=== PATIENT | female | born 1945 | race Hispanic/Latino ===

== ENCOUNTER 2016-12-24 11:59 | Emergency (ER) | payer MEDICARE ==
[2016-12-24] MEDS ORDERED: REGLAN IM ONE (14:23)
[2016-12-24] MEDS ORDERED: MORPHINE IM ONE (14:23)
--- NOTE | 2016-12-24 14:28 | Emergency Department Report ---
ED Headache HPI - General Chief Complaint: Headache Stated Complaint: SINUS INFECTION/HEADACHE Time Seen by Provider: 12/24/16 14:10 Source: patient - History of Present Illness Initial Comments: Patient comes into the ER today with complaints of right-sided headache for the past 2 days. Patient denies any recent injury to her head. Patient describes the pain as a sharp throbbing pain. Patient denies any visual changes. Patient does state that she has been nauseated without any vomiting. Patient thinks that it may be a sinus infection that has started her headache because she says that she feels very congested and swollen in the right side of her face. Patient does have a history of migraines and also states that this feels similar to such as well. Patient does note that the light does bother her headache some as well. Patient further notes that he has been on constant since she's had a bad migraine but in the past she has received a morphine shot that really has helped with her headache. Timing/Duration: other (2 days) Quality: severe, constant, pressure, throbbing Head Injury Location: frontal, temporal, parietal Modifying Factors: improves with: exposure to light Associated Symptoms: facial pain, nasal congestion. denies: confusion, loss of consciousness, numbness in legs/feet, seizures, stiff neck, vision changes, weakness Allergies/Adverse Reactions: Allergies nitroglycerin [From Nitro-Bid] Adverse Reaction (Verified 05/12/16 17:13) DECREASED HR Home Medications: Ambulatory Orders Amoxicillin 500 mg PO TID #30 capsule 12/24/16 Butalb/Acetamin/Caff 50-325-40 [Fioricet] 1 tab PO Q8HR PRN #15 tablet 12/24/16 DULoxetine [Cymbalta] 30 mg PO DAILY #30 capsule 12/24/16 Diazepam Tab [Valium] 5 mg PO BID PRN #10 tablet 12/24/16 ED Review of Systems ROS: Stated complaint: SINUS INFECTION/HEADACHE Other details as noted in HPI Constitutional: denies: chills, fever Eyes: denies: eye pain, eye discharge, vision change ENT: ear pain (right ear), congestion. denies: throat pain, dental pain Respiratory: denies: cough, shortness of breath, SOB with exertion, wheezing Cardiovascular: denies: chest pain, palpitations, dyspnea on exertion, edema, syncope Endocrine: no symptoms reported Gastrointestinal: nausea. denies: abdominal pain, vomiting, diarrhea Genitourinary: denies: urgency, dysuria, discharge Musculoskeletal: denies: back pain, joint swelling, arthralgia Skin: denies: rash, lesions Neurological: headache. denies: weakness, numbness, paresthesias, confusion, abnormal gait, vertigo Psychiatric: denies: anxiety, depression Hematological/Lymphatic: denies: easy bleeding, easy bruising ED Past Medical Hx - Past Medical History Hx Hypertension: Yes (x 40 years not on medications) Hx CVA: Yes Hx Heart Attack/AMI: No Hx Liver Disease: No Hx Renal Disease: No Hx Sickle Cell Disease: No Hx Headaches / Migraines: Yes (migraines) Hx Seizures: No Hx Psychiatric Treatment: Yes (ANXIETY) Hx COPD: Yes (not on medications) Hx HIV: No - Surgical History Hx Pacemaker: No Hx Internal Defibrillator: No Hx Appendectomy: Yes Additional Surgical History: HYSTERECTOMY. LEFT LUNG SURGERY (CANCER) - Social History Smoking Status: Current Every Day Smoker Substance Use Type: None - Medications Home Medications: Home Medications Medication Instructions Recorded Confirmed Last Taken Type Amoxicillin 500 mg PO TID #30 capsule 12/24/16 Unknown Rx Butalb/Acetamin/Caff 50-325-40 1 tab PO Q8HR PRN #15 tablet 12/24/16 Unknown Rx [Fioricet] DULoxetine [Cymbalta] 30 mg PO DAILY #30 capsule 12/24/16 Unknown Rx Diazepam Tab [Valium] 5 mg PO BID PRN #10 tablet 12/24/16 Unknown Rx ED Physical Exam - General Limitations: No Limitations General appearance: alert, in no apparent distress - Head Head exam: Present: atraumatic, normocephalic, normal inspection, other (right parietal, right frontal, right maxillary tenderness) - Eye Eye exam: Present: normal appearance, PERRL, EOMI. Absent: conjunctival injection, periorbital swelling, periorbital tenderness Pupils: Present: normal accommodation - ENT ENT exam: Present: mucous membranes moist, TM's normal bilaterally, normal external ear exam, other (right nasal mucosa redness and swelling) - Neck Neck exam: Present: normal inspection, full ROM. Absent: tenderness, meningismus, lymphadenopathy, thyromegaly - Respiratory Respiratory exam: Present: normal lung sounds bilaterally. Absent: respiratory distress, chest wall tenderness, decreased breath sounds - Cardiovascular Cardiovascular Exam: Present: regular rate, normal rhythm, normal heart sounds. Absent: systolic murmur, diastolic murmur, rubs, gallop - GI/Abdominal GI/Abdominal exam: Present: soft, normal bowel sounds. Absent: distended, tenderness - Extremities Exam Extremities exam: Present: normal inspection - Back Exam Back exam: Present: normal inspection - Neurological Exam Neurological exam: Present: alert, oriented X3, normal gait, reflexes normal. Absent: motor sensory deficit - Psychiatric Psychiatric exam: Present: normal affect, normal mood - Skin Skin exam: Present: warm, dry, intact, normal color. Absent: rash ED Course Vital Signs 12/24/16 12/24/16 13:09 15:45 Temperature 98 F Pulse Rate 64 Respiratory 16 20 Rate Blood Pressure 160/105 Blood Pressure 158/84 [Right] O2 Sat by Pulse 100 99 Oximetry ED Medical Decision Making - Radiology Data Radiology results: report reviewed CT of head without contrast reveals no evidence of acute hemorrhage or infarct. No masses or extra-axial collections. No significant findings. - Medical Decision Making Patient is nontoxic and hemodynamically stable. Upon reviewing CT imaging with patient in room, patient also asking for refill of her Cymbalta 30 mg daily. Patient states that she has been on that for quite some time and has ran out 2 weeks ago. Patient would also like to be referred to psychiatry and counseling as she notes that she has a lot of stressful situations going on in her life. I believe her current headache may be more sinus related that has escalated into a migraine headache. I will start patient on medication accordingly as well as refill her medicines with referral to psychiatry. Patient is in agreement with treatment plan and patient is stable for discharge. Critical care attestation.: If time is entered above; I have spent that time in minutes in the direct care of this critically ill patient, excluding procedure time. ED Disposition Clinical Impression: Right-sided headache, Anxiety and depression, Sinusitis, Migraine Disposition: TO HOME OR SELFCARE Is pt being admited?: No Does the pt Need Aspirin: No Condition: Good Instructions: Migraine Headache (ED), Sinusitis (ED), Anxiety (ED), Depression (ED) Prescriptions: Amoxicillin 500 mg PO TID #30 capsule Butalb/Acetamin/Caff 50-325-40 [Fioricet] 1 tab PO Q8HR PRN #15 tablet PRN Reason: Headache Diazepam Tab [Valium] 5 mg PO BID PRN #10 tablet PRN Reason: Anxiety DULoxetine [Cymbalta] 30 mg PO DAILY #30 capsule Referrals: PRIMARY CARE, [Primary Care Provider] - 3-5 Days [facility] [Outside] - 3-5 Days [facility] [Outside] - 3-5 Days Time of Disposition: 15:55
--- NOTE | 2016-12-24 15:32 | Cat Scan Report ---
Cranial CT without contrast. History: Hypertension/headache. Findings: There is no evidence of acute hemorrhage or infarct. The posterior fossa is normal. The ventricles are normal in size and contour. Mild senescent changes are present. There are no masses or extra-axial collections. The calvarium is intact. The paranasal sinuses are unremarkable. Impression: No significant findings.
[2016-12-24 15:46] VITALS: BP 158/84
== END 2016-12-24 16:05 | disposition home or self-care (01) ==
LOC: ED 11:59
DX: G43.909 Migraine, unspecified, not intractable, without status migrainosus (principal); J32.9 Chronic sinusitis, unspecified; F32.9 Major depressive disorder, single episode, unspecified; F41.9 Anxiety disorder, unspecified; I10 Essential (primary) hypertension; J44.9 Chronic obstructive pulmonary disease, unspecified; F17.200 Nicotine dependence, unspecified, uncomplicated
CPT/HCPCS: 70450; 96372; 99283; J2270; J2765

== ENCOUNTER 2017-09-29 15:48 | Emergency (ER) | payer MEDICARE ==
[2017-09-29 16:30] VITALS: BP 113/73
[2017-09-29 17:09] LABS: Bilirubin,Urine NEG (Negative); Blood,Urine NEG (Negative); Color,Urine Yellow (Yellow); Mucus,Urine FEW /HPF; Protein,Urine <15 mg/dL mg/dL (Negative)
== END 2017-09-29 21:40 | disposition left against medical advice (07) ==
LOC: ED 15:48
DX: R07.9 Chest pain, unspecified (principal); Z53.21 Procedure and treatment not carried out due to patient leaving prior to being seen by health care provider
CPT/HCPCS: 81001

== ENCOUNTER 2017-10-30 14:44 | Emergency (ER) | payer MEDICARE ==
[2017-10-30 15:08] VITALS: BP 146/80
[2017-10-30] MEDS ORDERED: MORPHINE IV ONE (15:43)
[2017-10-30] MEDS ORDERED: ZOFRAN IV ONE (15:43)
--- NOTE | 2017-10-30 15:48 | Emergency Department Report ---
ED Headache HPI - General Chief Complaint: Headache Stated Complaint: MIGRAINE Time Seen by Provider: 10/30/17 15:40 Source: patient - History of Present Illness Initial Comments: Patient is 72 years old female with history of migraine, patient presented to the ER complaining of headache, global associated with nausea and vomiting. Patient stated the headache started last night. She stated that it's a little bit CVA than what she used to have. Patient denied any fever, neck pain or stiffness. Patient denied any weakness, numbness or tingling sensation. No bowel or bladder incontinence. Patient also denied any head trauma. Timing/Duration: 24 hours Quality: moderate Head Injury Location: global Recent Head Trauma: no recent headache/trauma, frequent headaches, chronic headaches Associated Symptoms: denies symptoms, nausea/vomiting. denies: confusion, fatigue, facial pain, fever/chills, flushing, loss of consciousness, nasal congestion, nasal drainage, numbness in legs/feet, rash, seizures, sinus infection, stiff neck, vision changes, weakness, other Allergies/Adverse Reactions: Allergies nitroglycerin [From Nitro-Bid] Adverse Reaction (Verified 05/12/16 17:13) DECREASED HR Home Medications: Ambulatory Orders Amoxicillin 500 mg PO TID #30 capsule 12/24/16 Butalb/Acetamin/Caff 50-325-40 [Fioricet] 1 tab PO Q8HR PRN #15 tablet 12/24/16 DULoxetine [Cymbalta] 30 mg PO DAILY #30 capsule 12/24/16 Diazepam Tab [Valium] 5 mg PO BID PRN #10 tablet 12/24/16 ED Review of Systems ROS: Stated complaint: MIGRAINE Other details as noted in HPI Comment: All other systems reviewed and negative Constitutional: denies: chills, fever Respiratory: denies: cough, orthopnea, shortness of breath, SOB with exertion, SOB at rest, wheezing Cardiovascular: denies: chest pain, palpitations, dyspnea on exertion Gastrointestinal: nausea, vomiting. denies: abdominal pain, diarrhea, constipation, hematemesis, melena, hematochezia Musculoskeletal: denies: back pain Neurological: headache. denies: weakness, numbness, paresthesias, confusion, abnormal gait, vertigo ED Past Medical Hx - Past Medical History Hx Hypertension: Yes (x 40 years not on medications) Hx CVA: Yes (no residual) Hx Heart Attack/AMI: No Hx Liver Disease: No Hx Renal Disease: No Hx Sickle Cell Disease: No Hx Headaches / Migraines: Yes (migraines) Hx Seizures: No Hx Psychiatric Treatment: Yes (ANXIETY) Hx COPD: Yes (not on medications) Hx HIV: No - Surgical History Hx Pacemaker: No Hx Internal Defibrillator: No Hx Appendectomy: Yes Additional Surgical History: HYSTERECTOMY. LEFT LUNG SURGERY (CANCER) - Social History Smoking Status: Current Every Day Smoker Substance Use Type: None - Medications Home Medications: Home Medications Medication Instructions Recorded Confirmed Last Taken Type Amoxicillin 500 mg PO TID #30 capsule 12/24/16 Unknown Rx Butalb/Acetamin/Caff 50-325-40 1 tab PO Q8HR PRN #15 tablet 12/24/16 Unknown Rx [Fioricet] DULoxetine [Cymbalta] 30 mg PO DAILY #30 capsule 12/24/16 Unknown Rx Diazepam Tab [Valium] 5 mg PO BID PRN #10 tablet 12/24/16 Unknown Rx ED Physical Exam - General Limitations: No Limitations General appearance: alert, in no apparent distress - Head Head exam: Present: atraumatic, normocephalic, normal inspection - Eye Eye exam: Present: normal appearance, PERRL - ENT ENT exam: Present: normal exam, normal orophraynx, mucous membranes moist - Neck Neck exam: Present: normal inspection, full ROM. Absent: tenderness, meningismus, lymphadenopathy, thyromegaly - Respiratory Respiratory exam: Present: normal lung sounds bilaterally. Absent: respiratory distress, wheezes, rales, rhonchi, stridor, chest wall tenderness, accessory muscle use, decreased breath sounds, prolonged expiratory - Cardiovascular Cardiovascular Exam: Present: regular rate, normal rhythm, normal heart sounds - GI/Abdominal GI/Abdominal exam: Present: soft, normal bowel sounds. Absent: distended, tenderness, guarding, rebound, rigid, organomegaly, mass, bruit, pulsatile mass , hernia - Extremities Exam Extremities exam: Present: normal inspection, full ROM, normal capillary refill - Back Exam Back exam: Present: normal inspection, full ROM. Absent: tenderness, CVA tenderness (R), CVA tenderness (L), muscle spasm, paraspinal tenderness, vertebral tenderness, rash noted - Neurological Exam Neurological exam: Present: alert, oriented X3, CN II-XII intact, normal gait, reflexes normal - Skin Skin exam: Present: warm, intact, normal color ED Course Vital Signs 10/30/17 15:04 Temperature 97.5 F L Pulse Rate 69 Respiratory 18 Rate Blood Pressure 146/80 O2 Sat by Pulse 97 Oximetry ED Medical Decision Making - Lab Data Result diagrams: 10/30/17 16:20 10/30/17 16:20 - Radiology Data Radiology results: report reviewed Referring Physician: STACY DELEON Patient Name: DARBY REYNOSO Date of : 1945 Sex: Female Report Date: 2017-10-30 Report Status: Finalized Findings [facility] [address] [place] [address] Cat Scan Report Signed Patient: DARBY REYNOSO MR#: [id number] : 1945 Acct:[id number] Age/Sex: 72 / F ADM Date: 10/30/17 Loc: ED Attending Dr: Ordering Physician: STACY DELEON Date of Service: 10/30/17 Procedure(s): CT head/brain wo con Accession Number(s): [id number] cc: STACY DELEON FINAL REPORT EXAM: CT HEAD/BRAIN WO CON HISTORY: headache TECHNIQUE: Noncontrast CT axial images of the brain. PRIORS: 24 December 2016. FINDINGS: No parenchymal mass, mass effect, hemorrhage, midline shift or hydrocephalus. No evidence of acute cortical infarct. No abnormal, extra-axial fluid or air collection. Mild, patchy low density in the periventricular and subcortical white matter is nonspecific, but may relate to chronic small vessel ischemic change. Possible prominent perivascular space or old lacune in the left basal ganglia region again noted. Age-related volume loss. Osseous calvarium grossly intact. IMPRESSION: 1. No acute intracranial findings. 2. Chronic ischemic and atrophic changes. Transcribed By: [facility] Dictated By: MERLY AVALOS MD Electronically Authenticated By: MERLY AVALOS MD Signed Date/Time: 10/30/171643 DD/ 43 TD/TT: 10/30/171643 - Medical Decision Making Patient stated that she was feeling much better her headache is completely resolved. No nausea or vomiting. No weakness numbness or tingling sensation. Critical care attestation.: If time is entered above; I have spent that time in minutes in the direct care of this critically ill patient, excluding procedure time. ED Disposition Clinical Impression: Acute headache Disposition: - TO HOME OR SELFCARE Is pt being admited?: No Condition: Stable Instructions: Acute Headache (ED) Referrals: PRIMARY CARE, [Primary Care Provider] - 3-5 Days
[2017-10-30 16:35] LABS: Basophils % (Auto) 0.9 % (0.0-1.8); Eosinophils % (Auto) 2.5 % (0.0-4.3); Hematocrit 40.2 % (30.3-42.9); Hemoglobin 13.3 gm/dl (10.1-14.3); Lymphocytes % (Auto) 40.1 % (13.4-35.0); Mean Corpuscular HGB Conc 33 % (30-34); Mean Corpuscular Hemoglobin 31 pg (28-32); Mean Corpuscular Volume 93 fl (79-97); Mean Platelet Volume 7.6 fl (6-12); Platelet Count 296 K/mm3 (140-440); Red Blood Count 4.32 M/mm3 (3.65-5.03); Red Cell Distribution Width 13.9 % (13.2-15.2)
[2017-10-30 16:36] LABS: Eosinophils # (Auto) 0.1 K/mm3 (0.0-0.4); Monocytes # (Auto) 0.4 K/mm3 (0.0-0.8)
[2017-10-30] MEDS ORDERED: NACL 0.9% 500 ML 500 ML ONE (16:37)
[2017-10-30] MEDS ORDERED: NACL 0.9% 500 ML 500 ML IV ONE (16:38)
[2017-10-30 16:46] LABS: Alanine Aminotransferase 10 units/L (7-56); Albumin 4.4 g/dL (3.9-5); BUN/Creatinine Ratio 20; Blood Urea Nitrogen 12 mg/dL (7-17); Calcium 9.3 mg/dL (8.4-10.2); Hemolysis Index 5
--- NOTE | 2017-10-30 16:50 | Cat Scan Report ---
FINAL REPORT EXAM: CT HEAD/BRAIN WO CON HISTORY: headache TECHNIQUE: Noncontrast CT axial images of the brain. PRIORS: 24 December 2016. FINDINGS: No parenchymal mass, mass effect, hemorrhage, midline shift or hydrocephalus. No evidence of acute cortical infarct. No abnormal, extra-axial fluid or air collection. Mild, patchy low density in the periventricular and subcortical white matter is nonspecific, but may relate to chronic small vessel ischemic change. Possible prominent perivascular space or old lacune in the left basal ganglia region again noted. Age-related volume loss. Osseous calvarium grossly intact. IMPRESSION: 1. No acute intracranial findings. 2. Chronic ischemic and atrophic changes.
[2017-10-30 17:12] LABS: Bilirubin,Urine NEG (Negative); Blood,Urine NEG (Negative); Color,Urine Straw (Yellow); Protein,Urine <15 mg/dL mg/dL (Negative); Urobilinogen,Urine < 2.0 mg/dL (<2.0); WBC,Urine < 1.0 /HPF (0.0-6.0)
== END 2017-10-30 17:59 | disposition home or self-care (01) ==
LOC: ED 14:44
DX: G43.909 Migraine, unspecified, not intractable, without status migrainosus (principal); I10 Essential (primary) hypertension; F41.9 Anxiety disorder, unspecified; F17.200 Nicotine dependence, unspecified, uncomplicated; Z90.49 Acquired absence of other specified parts of digestive tract; Z90.710 Acquired absence of both cervix and uterus; Z88.8 Allergy status to other drugs, medicaments and biological substances
CPT/HCPCS: 36415; 70450; 80053; 81001; 85025; 96361; 96374; 96375; 99284; J2270; J2405; J7040

== ENCOUNTER 2017-12-02 00:06 | Emergency (ER) | payer MEDICARE ==
[2017-12-02 01:11] LABS: Basophils % (Auto) 0.4 % (0.0-1.8); Eosinophils # (Auto) 0.3 K/mm3 (0.0-0.4); Eosinophils % (Auto) 5.3 % (0.0-4.3); Hematocrit 40.8 % (30.3-42.9); Hemoglobin 13.8 gm/dl (10.1-14.3); Lymphocytes # (Auto) 2.6 K/mm3 (1.2-5.4); Lymphocytes % (Auto) 47.5 % (13.4-35.0); Mean Corpuscular HGB Conc 34 % (30-34); Mean Corpuscular Hemoglobin 32 pg (28-32); Mean Corpuscular Volume 93 fl (79-97); Monocytes # (Auto) 0.4 K/mm3 (0.0-0.8); Monocytes % (Auto) 8.1 % (0.0-7.3); Platelet Count 271 K/mm3 (140-440); Red Blood Count 4.39 M/mm3 (3.65-5.03); Red Cell Distribution Width 13.1 % (13.2-15.2)
[2017-12-02 01:32] LABS: BUN/Creatinine Ratio 13; Blood Urea Nitrogen 9 mg/dL (7-17); Calcium 9.3 mg/dL (8.4-10.2); Hemolysis Index 3
[2017-12-02 03:14] LABS: Amorphous Crystals,Urine Few; Bilirubin,Urine NEG (Negative); Blood,Urine NEG (Negative); Color,Urine Straw (Yellow); Protein,Urine <15 mg/dL mg/dL (Negative); Urobilinogen,Urine < 2.0 mg/dL (<2.0)
[2017-12-02] MEDS ORDERED: ATIVAN IV ONE (03:23)
[2017-12-02] MEDS ORDERED: ZOFRAN IV ONE (03:24)
[2017-12-02] MEDS ORDERED: MORPHINE IV ONE (03:24)
[2017-12-02] MEDS ORDERED: MORPHINE ONE (03:27)
--- NOTE | 2017-12-02 03:55 | Cat Scan Report ---
FINAL REPORT PROCEDURE: CT HEAD/BRAIN WO CON TECHNIQUE: Computerized tomography of the head was performed without contrast material. HISTORY: headache COMPARISON: 10/30/2017 FINDINGS: Skull and scalp: Normal. Paranasal sinuses: Normal. Ventricles and subarachnoid spaces: Normal. Cerebrum: There is no evidence of acute intracranial hemorrhage, hematoma, infarction, midline displacement or mass. Minimal atrophy is noted. There is an area of hypoattenuation in the left basal ganglia consistent with old lacunar infarction.. Cerebellum and brainstem: No evidence of hemorrhage, acute infarction or mass. Vasculature: Normal. Comments: None. IMPRESSION: There is no evidence of an acute intracranial process. Mild atrophy is noted. Small area of hypoattenuation in the left basal ganglia.
--- NOTE | 2017-12-02 04:18 | Emergency Department Report ---
HPI - General Chief Complaint: Pain General Time Seen by Provider: 12/02/17 03:09 - HPI HPI: Patient is a 72-year-old female presents for evaluation of recurrence of headache. The patient has a long-standing history of recurrent migraines. The patient complains of constant aching 10/10 in severity migraine for the past 10 days, exacerbated with movement. She submits that her headache is consistent with previous headaches. She also complains of generalized myalgias, which she states is also not new. The patient denies fever, head injury, neck pain, neck stiffness, chest pain, dyspnea, abdominal pain, vomiting, vision or hearing changes, smell or taste changes, paresthesias, facial drooping, slurred speech, seizure-like activity, urine or bowel incontinence or retention, or other focal neurological deficit. ED Past Medical Hx - Past Medical History Hx Hypertension: Yes (x 40 years not on medications) Hx CVA: Yes (no residual) Hx Heart Attack/AMI: No Hx Liver Disease: No Hx Renal Disease: No Hx Sickle Cell Disease: No Hx Headaches / Migraines: Yes (migraines) Hx Seizures: No Hx Psychiatric Treatment: Yes (ANXIETY) Hx COPD: Yes (not on medications) Hx HIV: No - Surgical History Hx Pacemaker: No Hx Internal Defibrillator: No Hx Appendectomy: Yes Additional Surgical History: HYSTERECTOMY. LEFT LUNG SURGERY (CANCER) - Social History Smoking Status: Current Every Day Smoker Substance Use Type: None - Medications Home Medications: Home Medications Medication Instructions Recorded Confirmed Last Taken Type Amoxicillin 500 mg PO TID #30 capsule 12/24/16 Unknown Rx Butalb/Acetamin/Caff 50-325-40 1 tab PO Q8HR PRN #15 tablet 12/24/16 Unknown Rx [Fioricet] DULoxetine [Cymbalta] 30 mg PO DAILY #30 capsule 12/24/16 Unknown Rx Diazepam Tab [Valium] 5 mg PO BID PRN #10 tablet 12/24/16 Unknown Rx HYDROcodone/APAP 5-325 [Ferriday 1 each PO Q6HR PRN #10 tablet 10/30/17 Unknown Rx 5/325] Ondansetron [Zofran Odt] 4 mg PO Q8HR PRN #14 tab.rapdis 10/30/17 Unknown Rx ED Review of Systems ROS: Stated complaint: HEADACHE/BODY PAIN Other details as noted in HPI Constitutional: denies: fever ENT: denies: throat or neck pain Respiratory: denies: cough, shortness of breath Cardiovascular: denies: chest pain Endocrine: denies unexplained weight loss or gain Gastrointestinal: denies: abdominal pain, nausea Genitourinary: denies: dysuria Musculoskeletal: denies: leg swelling Skin: denies: rash Neurological: reports headache Hematological/Lymphatic: denies: easy bleeding or easy bruising Psych: denies sadness or hopelessness Physical Exam - Physical Exam Vital Signs: Vital Signs 12/02/17 12/02/17 12/02/17 00:19 00:28 01:45 Temperature 97.4 F L 97.4 F L Pulse Rate 62 63 Respiratory 16 16 Rate Blood Pressure 162/95 162/95 Blood Pressure [Left] O2 Sat by Pulse 97 100 92 Oximetry 12/02/17 03:21 Temperature 98.2 F Pulse Rate 61 Respiratory 18 Rate Blood Pressure Blood Pressure 146/92 [Left] O2 Sat by Pulse 99 Oximetry Physical Exam: General: well-nourished, well-developed, no acute distress Head: Normocephalic, atraumatic Eyes: normal sclera ENT: Mucous membranes are pale and dry Neck: trachea midline, neck supple, No neck stiffness, no cervical adenopathy Respiratory: Breath sounds equal bilaterally, no wheezing, rales, or rhonchi Cardio: S1 and S2 present, no murmurs, rubs, gallops, capillary refill is delayed Abdomen: Normoactive bowel sounds, soft abdomen, no rigidity, no guarding or rebound tenderness Musc: No pitting edema Skin: No rash Neuro: alert oriented x4, normal cognition, speech normal, PERRL, EOM intact, no facial drooping, no uvula or tongue deviation on protrusion, no deficit with rotation of neck or shoulder shrug, no obvious gross motor deficit in the upper or lower extremities with flexion or extension at the shoulder, elbow, wrist, hip, knee, or ankle bilaterally, no obvious gross sensation deficit to crude touch or 2 pt discrimination, 2+ symmetric reflexes on DTR testing, no coordination deficit with [id number] or [id number] testing, Babinski downgoing, romberg negative, patient able to to ambulate without abnormal gait Psych: Normal affect ED Course Vital Signs 12/02/17 12/02/17 12/02/17 00:19 00:28 01:45 Temperature 97.4 F L 97.4 F L Pulse Rate 62 63 Respiratory 16 16 Rate Blood Pressure 162/95 162/95 Blood Pressure [Left] O2 Sat by Pulse 97 100 92 Oximetry 12/02/17 03:21 Temperature 98.2 F Pulse Rate 61 Respiratory 18 Rate Blood Pressure Blood Pressure 146/92 [Left] O2 Sat by Pulse 99 Oximetry ED Medical Decision Making - Lab Data Result diagrams: 12/02/17 00:52 12/02/17 00:52 - Medical Decision Making The patient was seen and examined by myself. The patient is placed on a legal writing professor and continuous pulse ox. On initial evaluation, the patient was found to be in no distress. Although there are no neuro deficits or other findings on examination concerning for acute intracranial disease process, and the patient states that symptoms are consistent with previous headaches, as the patient has a space as a constant headache for 10 days, and is found to have severely elevated blood pressure, CAT scan the head will be performed to rule out intracranial hemorrhage. IV access is established and the patient is given IV fentanyl for her headache. Lab results are not concerning including normal CK level. CT scan the head is negative for acute intracranial disease process. The patient was reevaluated and reported that their symptoms were markedly improved. The patient is stable for discharge with outpatient follow-up. The patient is given follow-up and return instructions. The patient expressed understanding and agreed with the plan. The patient is discharged in stable condition. Critical care attestation.: If time is entered above; I have spent that time in minutes in the direct care of this critically ill patient, excluding procedure time. ED Disposition Clinical Impression: Acute non intractable tension-type headache, Hypertensive urgency Disposition: DC-01 TO HOME OR SELFCARE Is pt being admited?: No Does the pt Need Aspirin: No Condition: Stable Instructions: Hypertension (ED), Migraine Headache (ED) Referrals: PRIMARY CARE, [Primary Care Provider] - 3-5 Days Time of Disposition: 04:18
[2017-12-02] MEDS ORDERED: CATAPRES PO ONE (04:22)
[2017-12-02 05:16] VITALS: BP 161/88
== END 2017-12-02 05:17 | disposition home or self-care (01) ==
LOC: ED 00:06
DX: G44.209 Tension-type headache, unspecified, not intractable (principal); I16.0 Hypertensive urgency; G43.909 Migraine, unspecified, not intractable, without status migrainosus; F41.9 Anxiety disorder, unspecified; J44.9 Chronic obstructive pulmonary disease, unspecified; F17.200 Nicotine dependence, unspecified, uncomplicated; Z86.73 Personal history of transient ischemic attack (TIA), and cerebral infarction without residual deficits; Z90.49 Acquired absence of other specified parts of digestive tract; Z90.710 Acquired absence of both cervix and uterus
CPT/HCPCS: 36415; 70450; 80048; 81001; 82550; 85025; 96374; 96375; 99285; J2060; J2270; J2405